=== PATIENT | female | born 1975 | race African-American/Black ===

== ENCOUNTER 2025-04-14 16:18 | Emergency (ER) | payer OTHER ==
[~2025-04-14] VITALS: Ht 180.3 cm; Wt 123.2 kg
[2025-04-14 16:24] VITALS: BP 176/94; PULSE 98; RESP 18; O2SAT 99
--- NOTE | 2025-04-14 18:14 | Physician Documentation ---
History of Present Illness ~ Chief Complaint: Nausea Stated Complaint: N/V Time Seen by MD: 17:04 HPI This is a 49-year-old female who presents with five days of nausea and headache, patient reports symptoms began after starting a new medication and that she had some vomiting when symptoms were worse though has not had vomiting and three days now after stopping the medication. Patient reports her symptoms have improved since stopping the medication. Patient reports that she called the physician who prescribed the medication and was advised to present to the emergency department for evaluation. Patient reports she feels otherwise well and is able to keep food and drink down without vomiting hands her headache is well controlled with [id number] Tylenol. Patient reports no fever or other acute symptoms or concerns. Medication Reconciliation Allergies: Coded Allergies: lisinopril (Verified Allergy, Severe, SWELLING LIPS, 04/14/25) Scheduled PRN ONDANSETRON ODT 4mg tablet (Ondansetron Odt), 1 TAB PO Q6H PRN PRN for nausea/vomiting Past Medical History Past Medical History: Hypertension Review of Systems ROS As stated above in the HPI, otherwise all systems are reviewed and negative. Physical Exam Vital Signs: Temperature: 97.8, Source: Oral, Heart Rate: 98, Respiratory Rate: 18, BP: 176/94, Pulse Oximetry: 99, Weight: 123.200 Oxygen Flow Rate: 0 Physical Exam VITALS: Reviewed and as above. GENERAL: Alert, nontoxic appearing, no apparent distress. HEENT: PERRLA, EOMI, no meningeal signs RESPIRATORY: No increased work of breathing, no respiratory distress, speaking in full clear sentences, lung sounds in all mccarthy CV: Regular rate and rhythm no murmur BACK: No CVA tenderness GI: Soft, nontender, no rebound, no guarding, bowel sounds present NEURO: GCS 15 Progress Results/Orders Results/Orders Vital Signs 04/14/25 04/14/25 16:24 18:21 Temp 97.8 97.8 Pulse 98 Resp 18 B/P (MAP) 176/94 Pulse Ox 99 O2 Flow Rate 0 Medical Decision Making Findings This 49-year-old female presented with five days of nausea and headache which starting medication, it was reassuring patient reported symptoms did begin to subside after she stopped taking the medication however her primary did request she be assessed by emergency department, physical exam was benign she was well- appearing. Additionally reassuring patient has not episodes several days and is able to keep food and fluids down. With shared decision-making patient declined lab work and has declined Zofran in the emergency department. Patient provided careful return care precautions, follow up instructions, home care instructions which he verbalized understanding of. Diff Dx GI Bleed:Consideration: Include: Diverticulitis, Esophagitis, Gastritis, Gastroenteritis, Inflammatory BD, PUD Diff Dx Pain:Considerations: Include: Appendicitis, Cholecystitis, Cholelithasis, Constipation, Esophagitis, Gastritis/PUD, Gastroenteritis, GI hemorrhage, Hernia, Inflammatory BD, Mass, Urinary obstruction, Urinary tract infection, Urolithiasis Diff Dx N/V/D:Considerations: Include: Appendicitis, Bowel obstruction, Dehydration, DKA, Diarrhea - bacterial, Diarrhea - parasitic, Diarrhea - viral, Diverticulitis, Diverticulosis, Electrolyte imbalance, Food poisoning, Gastroenteritis, GE reflux, Hypovolemia, Hypotension, Inflammatory BD, Impaction, Pancreatitis, Renal failure, Urolithiasis, Urinary obstruction, UTI Diff Dx Rectal:Considerations: Unlikely: Fissure, Fistula, Foreign body, Impaction, Perirectal abscess, Rectal prolapse, Subcutaneous abscess, Thrombosed hemorrhoid, Ulcer, UTI, Other Departure Time of Disposition: 18:15 Disposition: 01 HOME / SELF CARE / HOMELESS Impression: Primary Impression: Nausea Condition: Improved Discharge Instructions: Nausea and Vomiting, Adult, [id number] Additional Instructions: Your physical exam was reassuring, and in his reassuring your symptoms are i mproving, please return to the emergency department for re-evaluation if your symptoms worsen. Please follow up with your primary care provider in the next few days. Please return to the emergency department for any new or worsening concerning symptoms. Referrals: NO PRIMARY CARE PROVIDER (PCP) Prescriptions ONDANSETRON ODT 4mg tablet (ONDANSETRON ODT) 4 Mg Tab.rapdis 1 TAB PO Q6H PRN PRN for nausea/vomiting for 4 Days, #16 TAB 0 Refills Prov: JIMMY CARDOSO 04/14/25 Education Educated: Patient Educated regarding: diagnosis, treatment, prognosis, need for follow up Signature Scribe Signature: No scribe Attestation: The note accurately reflects work and decisions made by me.JEY Salomon 04/16/25 01:43 JIMMY CARDOSO Apr 14, 2025 18:14
[2025-04-14] MEDS ORDERED: ONDA-243 PO (18:16)
[2025-04-14 18:21] VITALS: TEMP 97.8
== END 2025-04-14 18:26 | disposition home or self-care (01) ==
LOC: ER 16:20
DX: R11.0 Nausea (principal); R51.9 Headache, unspecified; I10 Essential (primary) hypertension; Z88.8 Allergy status to other drugs, medicaments and biological substances
CPT/HCPCS: 99283